=== PATIENT | male | born 1960 | race Caucasian/White ===

== ENCOUNTER → 2019-01-01 | Outpatient (CLI) | payer BC ==
--- NOTE | 2019-01-01 15:53 | MR ---
EXAMINATION TYPE: MR shoulder RT wo con DATE OF EXAM: 01/01/2019 COMPARISON: Outside right shoulder x-ray 12/23/2018. HISTORY: Rt shoulder pain x 6 mos, no trauma TECHNIQUE: Multiplanar, multisequence imaging of the right shoulder is performed without contrast. FINDINGS: Rotator Cuff: Distal supraspinatus and infraspinatus tendons are intact. Subscapularis tendon appears grossly intact. There is fluid surrounding subscapularis tendon centered near the myotendinous junct ion . Rotator cuff muscle bulk is preserved. Acromioclavicular Joint: Moderate narrowing and capsular hypertrophy is present. Underlying fat plane is effaced. Distal acromion morphology is unremarkable. Glenohumeral Joint: Moderate to severe narrowing is seen with small effusion. No significant spurring . Labrum: The labrum appears grossly intact given limitation of non-arthrogram study. Biceps Tendon: The long head of biceps is in normal location within bicipital groove. Bone marrow signal: Subchondral cystic changes superolateral humeral head. Other: No rotator cuff tear. Moderate to borderline severe degenerative change more prominent than christina spected on plain films with evidence of underlying impingement, correlate clinically. IMPRESSION: Normal examination of the shoulder.
== END | disposition home or self-care (01) ==
LOC: RADMRIMAIN 14:39
PROVIDERS: ATTEND Orthopaedic Surgery
DX: M25.511 Pain in right shoulder (principal)

== ENCOUNTER → 2019-01-08 | Outpatient (CLI) | payer BC ==
[2019-01-08 11:39] LABS: Basophils % (A) 1 %; Eosinophils # (A) 0.2 k/uL (0-0.7); Eosinophils % (A) 4 %; HGB 14.9 gm/dL (13.0-17.5); Lymphocytes # (A) 1.2 k/uL (1.0-4.8); Lymphocytes % (A) 24 %; MCH 31.1 pg (25.0-35.0); MCHC 33.2 g/dL (31.0-37.0); MCV 93.7 fL (80.0-100.0); Mean Platelet Volume 7.1; Monocytes # (A) 0.3 k/uL (0-1.0); Monocytes % (A) 5 %; Neutrophils # (A) 3.2 k/uL (1.3-7.7); Neutrophils % (A) 64 %; Platelet Count 235 k/uL (150-450); RBC 4.81 m/uL (4.30-5.90); RDW 12.8 % (11.5-15.5)
[2019-01-08 16:34] LABS: Anion Gap 8.4 mmol/L (4.00-12.00); Carbon Dioxide 26.6 mmol/L (21.6-31.8); Potassium 4.4 mmol/L (3.5-5.5)
== END | disposition home or self-care (01) ==
LOC: LABWHC1 10:01
PROVIDERS: ATTEND Orthopaedic Surgery
DX: Z01.818 Encounter for other preprocedural examination (principal); M75.41 Impingement syndrome of right shoulder
CPT/HCPCS: 36415; 80051; 85025; 93005

== ENCOUNTER 2019-01-27 07:47 | Day surgery (SDC) | payer BC ==
[2019-01-21 14:37] VITALS: BMI 34.9
--- NOTE | 2019-01-26 14:42 | HP ---
HISTORY AND PHYSICAL DATE OF SURGERY: 01/27/2019 Donovan Otero is a 58-year-old patient seen with progressive right shoulder pain. We discussed treatment options with him. He elected to proceed with arthroscopy. Consent was obtained. PAST MEDICAL HISTORY: Hypertension, gastroesophageal reflux disease. PAST SURGICAL HISTORY: Noncontributory. MEDICATIONS: 1. Hydrochlorothiazide. 2. Lisinopril. 3. Omeprazole. ALLERGIES: PENICILLIN. SOCIAL HISTORY: He denies tobacco use. PHYSICAL EVALUATION OF THE RIGHT SHOULDER: Flexion 140 degrees, abduction 100 degrees, external rotation is 60 degrees with pain and weakness. There is tenderness along the anterolateral acromion rotator cuff insertion site. Impingement sign is positive at 90 degrees. Distal neurovascular exam is intact. RIGHT SHOULDER RADIOGRAPHS: Revealed a type 2 anterior acromion. Cystic changes of the tuberosity. An MRI of the right shoulder revealed glenohumeral osteoarthritic changes, acromioclavicular joint osteoarthritic changes as well as impingement. IMPRESSION: 1. Right shoulder impingement. 2. Right shoulder acromioclavicular joint osteoarthritis. PLAN: Right shoulder arthroscopy, subacromial decompression, possible arthroscopic rotator cuff repair, probable Veronique procedure and debridement. MMODL / IJN: [id number] /
[~2019-01-27 07:47] MED LIST: DEXAMETHASONE SOD PHOSPHATE 10 MG/ML 1 ML VIAL IV ONE; HYDROmorphone 0.5 MG/0.5 ML SYRINGE IVP PRN; KETOROLAC 30 MG/ML 1 ML VIAL IVP SCH; LIDOCAINE 1% 20 ML VIAL (10MG/ML) FOR IV START INTRADERMA PRN; METOCLOPRAMIDE 5 MG/ML 2 ML VIAL IVP PRN; ONDANSETRON 4 MG/2 ML VIAL IVP ONE; ceFAZolin 3 GM in SODIUM CHLORIDE 0.9% 100 ML IVPB ONE
[2019-01-27 08:14] VITALS: RESP 16
[2019-01-27] MEDS: LACTATED RINGERS 1,000 ML IV SCH ×2 (08:20→09:41)
[2019-01-27] MEDS ORDERED: fentaNYL (PF) 50 MCG/ML 2 ML AMP IVP ONE (08:33)
[2019-01-27] MEDS ORDERED: MIDAZOLAM (PF) 2 MG/2 ML VIAL IVP ONE (08:33)
[2019-01-27 08:36] LABS: Glucose,Whole Blood 110 mg/dL (75-99)
--- NOTE | 2019-01-27 09:26 | P.ONQ ---
Anesthesiology Proc Note - PNB - Peripheral Nerve Block Performed Right Interscalene Single Time Out Performed: Yes Procedure Start Time: 08:32 Indication: Acute Post-Operative Pain Specifically requested for management of pain by DrDorinda: To Pastrana Sedation Type: Sedate with meaningful contact maintained Preparation: Sterile Prep Position: Supine Catheter: None Needle Types: Other (see comment) (Pajunk) Needle Size: 50mm (2") Needle Gauge: 21 Technique: Ultrasound Injectate: 0.5% Ropivacaine (see comment for volume) (20) Blood Aspirated: No Pain Paresthesia on Injection Noted: No Resistance on Injection: Normal Events: Uneventful and Well Tolerated
[2019-01-27] MEDS ORDERED: MIDAZOLAM 2 MG/2 ML VIAL ONE ×2 (09:37)
[2019-01-27] MEDS ORDERED: SUCCINYLCHOLINE CHLORIDE 100 MG/5 ML SYR IV ONE ×2 (09:37)
[2019-01-27] MEDS ORDERED: LIDOCAINE 2%-EPI 1:100,000 20 ML VIAL ONE ×2 (09:37)
[2019-01-27] MEDS ORDERED: ROPIVACAINE 5 MG/ML 30 ML VIAL ONE ×2 (09:37)
[2019-01-27] MEDS ORDERED: fentaNYL (PF) 50 MCG/ML 2 ML AMP ONE ×2 (09:37)
[2019-01-27] MEDS ORDERED: PROPOFOL 10 MG/ML 20 ML VIAL IV ONE ×2 (09:37)
[2019-01-27] MEDS ORDERED: LIDOCAINE 1% INJ 10MG/ML (20 ML MDV) ONE ×2 (09:37)
[2019-01-27] MEDS ORDERED: LACTATED RINGERS 1,000 ML IV ONE (10:51)
--- NOTE | 2019-01-27 11:13 | P.OP ---
Date of Procedure: 01/27/19 Preoperative Diagnosis: Right shoulder impingement Postoperative Diagnosis: 1. Right shoulder impingement 2. Right shoulder acromioclavicular joint osteoarthritis 3. 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 Right shoulder partial long head biceps tendon tear 5. Right shoulder superficial rotator cuff tear 6. Right shoulder superficial labral tear Procedure(s) Performed: 1. Right shoulder arthroscopic subacromial decompression 2. Right shoulder arthroscopic Veronique procedure 3. Right shoulder arthroscopic chondroplasty humeral head 4. Right shoulder arthroscopic biceps tenotomy 5. Right shoulder arthroscopic debridement superficial rotator cuff tear 6. Right shoulder arthroscopic debridement superficial labral tear Anesthesia: GETA, regional (Interscalene block) Surgeon: To Pastrana Estimated Blood Loss (ml): 5 Pathology: none sent Condition: stable Disposition: PACU Indications for Procedure: 58-year-old patient seen with progressive right shoulder pain. After having treatment options discussed, he elected to proceed with arthroscopy. Operative Findings: See description of procedure Description of Procedure: Patient underwent an interscalene block by department of anesthesia. The patient was then taken to the operative suite. The patient underwent a general anesthetic by the department of anesthesia. The patient was placed into a lateral position and secured. There was appropriate padding of the bony prominence. Right shoulder was then prepped and draped in normal sterile orthopedic fashion. We placed the extremity in 10 pounds of longitudinal traction. A posterior incision was now made for a posterior working portal site. The trocar and cannula were inserted into the glenohumeral joint. Arthroscopy was initiated. Spinal needle was now inserted anteriorly, to ascertain the anterior working portal site. An incision was now made in that area, a trocar was inserted followed by a probe. There was superficial tearing of the superior labrum. It was partial tearing long head biceps tendon with hyperemia. There was an area of grade 4 chondromalacia of the humeral head with some osteochondral flap tears peripherally. There were grade 3-4 chondral moist changes of the glenoid fossa as well. The rotator cuff appeared intact from the glenohumeral side. I performed an arthroscopic biceps tenotomy. I debrided that superficial labral tear down to stable tissue. I performed a chondroplasty of the humeral head down to stable tissue. The residual articular surface was stable. Instruments now removed from glenohumeral joint. Utilizing the posterior working portal site, the trocar and cannula were inserted into the subacromial space. Arthroscopy initiated. I made an incision 2 fingerbreadths lateral to the acromion. I introduced my trocar followed by my ArthroCare ablator. I now began ablating thick subacromial bursal tissue, which exposed the undersurface of the anterior acromion. There was diminished subacromial space. There was a very prominent anterior acromion. A motorized bur was introduced and a subacromial decompression was performed. I also excised some osteophytes off the inferior aspect of the distal clavicle. The AC joint was visualized and noted to be fairly arthritic. The motorized bur was introduced in the anterior portal site and a Veronique procedure was performed without difficulty, decompressing the AC joint nicely. I turned my attention to the rotator cuff. There appeared to be some superficial tearing along the anterior aspect distal supraspinatus. I debrided that utilizing motorize shaver. The residual tendon appeared stable. There was no perforation. I injected 1 mL Renue intra-articular. Instruments now removed from the portal sites. All portal sites were approximated with nylon suture. Sterile dressings were applied followed by a shoulder sling. The patient was awakened, transferred to a bed, and taken to recovery in stable condition.
[2019-01-27 11:15] VITALS: TEMP 97.6
[2019-01-27 12:36] VITALS: BP 139/88; PULSE 88
== END 2019-01-27 13:17 | disposition home or self-care (01) ==
LOC: OR 07:47
PROVIDERS: ATTEND Orthopaedic Surgery
DX: M75.101 Unspecified rotator cuff tear or rupture of right shoulder, not specified as traumatic (principal); M19.011 Primary osteoarthritis, right shoulder; M94.211 Chondromalacia, right shoulder; S46.111A Strain of muscle, fascia and tendon of long head of biceps, right arm, initial encounter; S43.431A Superior glenoid labrum lesion of right shoulder, initial encounter; X58.XXXA Exposure to other specified factors, initial encounter; M75.41 Impingement syndrome of right shoulder; M25.711 Osteophyte, right shoulder; I10 Essential (primary) hypertension; K21.9 Gastro-esophageal reflux disease without esophagitis; G47.33 Obstructive sleep apnea (adult) (pediatric); Z99.89 Dependence on other enabling machines and devices; E11.9 Type 2 diabetes mellitus without complications; Z79.899 Other long term (current) drug therapy; Z88.0 Allergy status to penicillin
CPT/HCPCS: 64415; 29823; 29824; C1713; C1765; J2250 ×2; J1100; J0690; J2405; J2001; J3010; J2795; J0330; J2704

== ENCOUNTER → 2019-08-30 | Outpatient (CLI) | payer BC ==
--- NOTE | 2019-08-30 23:36 | CT ---
EXAMINATION TYPE: CT abdomen pelvis w con DATE OF EXAM: 08/30/2019 COMPARISON: None. HISTORY: LT side abdominal pain, pelvic/back pain CT DLP: 1931 mGycm, Automated Exposure Control for Dose Reduction was Utilized. CONTRAST: CT scan of the abdomen and pelvis is performed with oral and with IV Contrast, patient injected with 100 mL of Isovue 300. FINDINGS: LUNG BASES: Patchy bibasilar linear scarring and/or atelectasis. LIVER/GB: Liver is diffusely low dense suggesting fatty infiltration. PANCREAS: No significant abnormality is seen. SPLEEN: No significant abnormality is seen. ADRENALS: No significant abnormality is seen. KIDNEYS: No significant abnormality is seen. BOWEL: Normal-appearing appendix from cecum to level of right upper pelvis. Oral contrast reaches the level of the terminal ileum. Some scattered diverticula throughout the colon most prominently involv ing the sigmoid colon without convincing evidence for acute diverticulitis PROSTATE/SEMINAL VESICLES: Slightly enlarged prostate gland bulging on bladder base. Mild wall thicke janna of bladder presumed related to outlet obstruction from BPH LYMPH NODES: No greater than 1cm abdominal or pelvic lymph nodes are appreciated. OSSEOUS STRUCTURES: [id number] multilevel spurring and disc space narrowing in the thoracolumba r spine. Moderate narrowing in both hip joints. OTHER: No significant additional abnormality is seen. IMPRESSION: No significant acute finding is seen to account for patient's clinical symptoms. Fairly prominent sigmoid colonic diverticulosis without convincing CT evidence for acute diverticulitis.
== END | disposition home or self-care (01) ==
LOC: RADCTMAIN 15:29
PROVIDERS: ATTEND Family Medicine
DX: K57.30 Diverticulosis of large intestine without perforation or abscess without bleeding (principal)
CPT/HCPCS: 74177; Q9967

== ENCOUNTER → 2019-10-15 | Outpatient (CLI) | payer BC ==
--- NOTE | 2019-10-15 14:14 | XR ---
EXAMINATION TYPE: XR ribs LT w pa chest xray DATE OF EXAM: 10/15/2019 CLINICAL HISTORY: Chronic left-sided rib pain. No known injury. Heart murmur. TECHNIQUE: Single frontal view of the chest is obtained. 2 views of the left ribs were also obtained. COMPARISON: None FINDINGS: There is no focal air space opacity, pleural effusion, or pneumothorax seen. The cardiac silhouette size is within normal limits. No acute displaced left rib fracture nor chronic healed frac ture deformity on the left. IMPRESSION: No acute cardiopulmonary process. No healed chronic left rib fracture nor acute displace d left rib fracture.
== END | disposition home or self-care (01) ==
LOC: RADXRMAIN 13:01
PROVIDERS: ATTEND Family Medicine
DX: R07.81 Pleurodynia (principal)

== ENCOUNTER → 2023-12-26 | Outpatient (CLI) | payer OTHER ==
--- NOTE | 2023-12-26 10:55 | CT ---
EXAMINATION TYPE: CT knee RT wo con DATE OF EXAM: 12/26/2023 COMPARISON: None HISTORY: right knee pain CT DLP: 440.4 mGycm Automated exposure control for dose reduction was used. FINDINGS: The exam is significantly limited by metallic artifact. There is a total left knee prosthesis. There is no evidence of loosening or displacement. There is near-anatomic alignment. There is no osteolysis. IMPRESSION: LIMITED BY METALLIC ARTIFACT BUT NO SIGNIFICANT ABNORMALITY SEEN.
== END | disposition home or self-care (01) ==
LOC: RADCTMAIN 09:19
PROVIDERS: ATTEND Orthopaedic Surgery
DX: S80.01XD Contusion of right knee, subsequent encounter (principal); I10 Essential (primary) hypertension; Z96.651 Presence of right artificial knee joint; S82.091D Other fracture of right patella, subsequent encounter for closed fracture with routine healing; M16.11 Unilateral primary osteoarthritis, right hip; M51.36 Other intervertebral disc degeneration, lumbar region